=== PATIENT | male | born 1950 | race Caucasian/White ===

== ENCOUNTER → 2022-05-24 | Outpatient (CLI) | payer MEDICARE, BC ==
[~2022-05-24] MED LIST: CIPR750T2 PO; ERGO500029; GABA-1171; IRBE300T12; LORA1TAB4 PO; TIZA2TA
== END ==
LOC: M ONCR 11:09
PROVIDERS: ATTEND General Practice
DX: C61 Malignant neoplasm of prostate (principal)

== ENCOUNTER → 2022-06-21 | Outpatient (CLI) | payer MEDICARE, BC ==
[~2022-06-21] MED LIST changes: +LIDOCAINE 2% MDV 20ML VIAL XX ONE; +LIDOCAINE VISCOUS 2% SOLN 15ML UDC XX ONE
== END ==
LOC: M ONCR 12:28
PROVIDERS: ATTEND General Practice
DX: C61 Malignant neoplasm of prostate (principal)
CPT/HCPCS: 55874; 55876; A4648; C1889